=== PATIENT | male | born 1960 | race African-American/Black ===

== ENCOUNTER 2020-11-28 10:17 | Emergency (ER) | payer OTHER | END 2020-11-28 11:43 | disposition home or self-care (01) | LOC: MADERS 10:17 | DX: S01.01XD Laceration without foreign body of scalp, subsequent encounter (principal); S01.81XD Laceration without foreign body of other part of head, subsequent encounter; S61.411D Laceration without foreign body of right hand, subsequent encounter; V89.2XXD Person injured in unspecified motor-vehicle accident, traffic, subsequent encounter ==

== ENCOUNTER 2020-12-15 12:46 | Emergency (ER) | payer OTHER ==
[2020-12-15] MEDS ORDERED: Cyclobenzaprine 10 MG TAB ONE (13:24)
== END 2020-12-15 13:30 | disposition home or self-care (01) ==
LOC: MADERS 12:46
DX: S39.82XA Other specified injuries of lower back, initial encounter (principal); M25.561 Pain in right knee; M25.562 Pain in left knee; V89.2XXA Person injured in unspecified motor-vehicle accident, traffic, initial encounter
CPT/HCPCS: 99283

== ENCOUNTER 2021-01-05 09:24 | Emergency (ER) | payer OTHER | END 2021-01-05 10:45 | disposition home or self-care (01) | LOC: MADERS 09:24 | DX: S63.633A Sprain of interphalangeal joint of left middle finger, initial encounter (principal); X58.XXXA Exposure to other specified factors, initial encounter ==